=== PATIENT | female | born 1950 | race Caucasian/White ===

== ENCOUNTER 2016-03-31 10:31 | Outpatient (CLI) | payer MEDICARE, BC ==
--- NOTE | 2016-03-31 16:44 | RAD ---
CHEST TWO VIEWS: Date: 03-31-16 Comparison: 06-01-12 FINDINGS: The heart is normal in size. There is no vascular congestion or edema. Faint calcification is seen in the aortic arch. There is no deviation of the trachea. No lobar infiltrates are seen. The lungs are hyperexpanded suggestive of COPD. There is a little i ncreased density in the right cardiophrenic angle and minimal haziness around the hilum. I believe that this is probably just positioning and normal anatomical structures overlapping. It would take a CT to be certain, though my suspicion of significant disease here is low. The symptoms might driv e further studies. There is no sign of pneumonia. Osteoporosis is present in a few mild thoracic v ertebral compressions are noted as before. They seem little different. IMPRESSION: 1. COPD. 2. Slight increased density in the right cardiophrenic angle which I believe is due to overlap of n ormal anatomical structures. CT would be needed to clear it completely, but my current suspicion of significant disease is low. POS: HOME
== END 2016-03-31 10:32 | disposition home or self-care (01) ==
LOC: BURRAD 10:31
PROVIDERS: ATTEND Family Medicine
DX: R06.09 Other forms of dyspnea (principal); J44.9 Chronic obstructive pulmonary disease, unspecified
CPT/HCPCS: 71020